=== PATIENT | male | born 1990 | race Two or more races ===

== ENCOUNTER 2022-07-02 07:54 | Outpatient (CLI) | payer BC ==
[2022-07-02 08:57] LABS: #Basophils 0.1 10x3/uL (0.0-0.2); #Eosinphils 0.4 10x3/uL (0.0-0.5); #Monocytes 0.5 10x3/uL (0.0-1.1); #Neutrophils 3.2 10x3/uL (1.5-8.4); %Basophils 0.9 % (0.0-2.0); %Eosinophils 6.3 % (0.0-6.0); %Lymphocytes 30.7 % (18.0-47.0); %Monocytes 7.8 % (0.0-10.0); %Neutrophils 54.1 % (40.0-75.0); Hemoglobin 13.8 g/dL (13.5-17.5); Mean Corpuscular HGB CONC 33.2 g/dL (32.0-36.0); Mean Corpuscular Hemoglobin 28.7 pg (27.0-33.0); Mean Corpuscular Volume 86.5 fl (81.2-95.1); Mean Platelet Volume 11.2 fl (7.4-10.4); Platelet Count 202 10x3/uL (150-450); RBC Distribution Width 13.2 % (11.5-14.5); Red Blood Cell (RBC) Count 4.81 10x6/uL (4.32-5.72); White Blood Cell (WBC) Count 5.9 10x3/uL (3.5-10.5)
== END 2022-07-02 07:55 | disposition home or self-care (01) ==
LOC: LABBT 07:54
PROVIDERS: ATTEND Orthopaedic Surgery
DX: Z01.812 Encounter for preprocedural laboratory examination (principal); G56.22 Lesion of ulnar nerve, left upper limb
CPT/HCPCS: 85025

== ENCOUNTER 2022-07-04 07:58 | Day surgery (SDC) | payer BC ==
[2022-07-02 12:33] VITALS: BMI 22.3
[2022-07-04] MEDS ORDERED: Sodium Chloride 0.9% 100 ML ONE (10:05)
[2022-07-04] MEDS ORDERED: CEFAZOLIN 2 GM VIAL ONE (10:05)
[2022-07-04] MEDS ORDERED: EPINEPHrine 1 MG/ML AMP ONE (10:23)
[2022-07-04] MEDS ORDERED: Lidocaine 1% (PF) 30 ML VIAL ONE (10:23)
[2022-07-04] MEDS ORDERED: fentaNYL PF 100 MCG/2 ML SYRINGE ONE (10:32)
[2022-07-04] MEDS ORDERED: Ondansetron PF 4 MG/2 ML Vial ONE (10:43)
[2022-07-04] MEDS ORDERED: Lidocaine 1% PF 5 ML VIAL ONE (10:43)
[2022-07-04] MEDS ORDERED: Dexamethasone 20 MG/5 ML VIAL ONE (10:43)
[2022-07-04] MEDS ORDERED: PROPOFOL 200 MG/20 ML VIAL ONE (10:43)
[2022-07-04] MEDS ORDERED: Ketorolac Tromethamine 30 MG/ML VIAL ONE (10:43)
[2022-07-04] MEDS ORDERED: HYDROcodone/Acetaminophen 5/325 mg Tablet ONE (13:15)
== END 2022-07-04 13:50 | disposition home or self-care (01) ==
LOC: SDC 07:58
PROVIDERS: ATTEND Orthopaedic Surgery
PROC: 01N40ZZ Release Ulnar Nerve, Open Approach (ICD-10-PCS; principal; 2022-07-04)
DX: G56.22 Lesion of ulnar nerve, left upper limb (principal); Z87.891 Personal history of nicotine dependence
CPT/HCPCS: J0171; J1100; J1885; J2001; J2405; J2704; J3490